=== PATIENT | female | born 1960 | race African-American/Black ===

== ENCOUNTER 2021-06-09 13:56 | Emergency (ER) | payer MEDICAID ==
[~2021-06-09] VITALS: Ht 165.1 cm; Wt 70.0 kg
[2021-06-09 16:22] LABS: CHLORIDE 105 mEq/L (98-107)
[2021-06-09 16:27] LABS: BASOPHILS % 0.5 % (0.0-2.0); EOSINOPHILS % 1.7 % (0.0-5.0); ETHANOL BLOOD 36 mg/dL; HEMATOCRIT. 44.1 % (36.0-48.0); HEMOGLOBIN. 14.6 g/dL (12.0-16.0); LYMPHOCYTES % 8.1 % (20.0-50.0); MEAN CORPUSCULAR HEMOGLOBIN 34.2 pg (28.0-32.0); MEAN CORPUSCULAR VOLUME 103.6 fL (81.0-99.0); MEAN PLATELET VOLUME 8.5 fl (7.4-10.4); NEUTROPHILS % 78.7 % (40.0-76.0); PLATELET 278 x1000/uL (130-400); RED BLOOD CELL COUNT 4.26 mill/uL (4.2-5.4); RED CELL DISTRIBUTION WIDTH 14.9 % (11.6-14.6)
[2021-06-09] MEDS ORDERED: FLUORESCEIN SODIUM 1MG/STRIP BOTHEYE ONE (17:45)
[2021-06-09 17:56] LABS: CLARITY URINE CLEAR (CLEAR); COLOR URINE YELLOW (YELLOW); KETONES URINE NEGATIVE (NEGATIVE); LEUKOCYTE ESTERASE URINE 1+ (NEGATIVE); NITRITE URINE NEGATIVE (NEGATIVE); OCCULT BLOOD URINE NEGATIVE (NEGATIVE); PROTEIN URINE 1+ (NEGATIVE)
[2021-06-09 18:11] LABS: *AMPHETAMINES SCREEN URINE NEGATIVE (NEGATIVE); *BARBITURATES SCREEN URINE NEGATIVE (NEGATIVE); *BENZODIAZEPINES SCREEN URINE NEGATIVE (NEGATIVE); *COCAINE SCREEN URINE PRESUMTIVE POSITIVE (NEGATIVE); CANNABINOID URINE SCREEN NEGATIVE (NEGATIVE); METHADONE URINE SCREEN NEGATIVE (NEGATIVE); OPIATES URINE SCREEN NEGATIVE (NEGATIVE); PHENCYCLIDINE URINE SCREEN NEGATIVE (NEGATIVE)
[2021-06-09] MEDS ORDERED: TETRACAINE 0.5% OPHTH DROPS 4ML BOTHEYE ONE (19:00)
[2021-06-09] MEDS ORDERED: SODIUM CHLORIDE 0.9% 1,000 ML IV ONE (21:00)
[2021-06-09] MEDS ORDERED: CIPROFLOXACIN 0.3% OPHTH SOLN 2.5ML BOTHEYE SCH (21:00)
[2021-06-09] MEDS ORDERED: CEFTRIAXONE 1 G PREMIX 50 ML IV ONE (21:00)
[2021-06-09] MEDS ORDERED: DOXY200T8 MT (21:34)
[2021-06-10 00:47] VITALS: BP 133/72
== END 2021-06-10 00:54 | disposition home or self-care (01) ==
LOC: ER 14:19
DX: H10.9 Unspecified conjunctivitis (principal); N39.0 Urinary tract infection, site not specified
CPT/HCPCS: 36415; 73552; 80053; 80305; 80320; 81003; 83690; 85025; 96374; 99285; J0696; J7030; G0480